=== PATIENT | male | born 1935 | race Caucasian/White ===

== ENCOUNTER 2022-08-24 22:04 | Emergency (ER) | payer MEDICARE ==
[~2022-08-24] VITALS: Ht 172.7 cm; Wt 100.0 kg
[~2022-08-24 22:04] MED LIST: ADVAIR DISK1 IN; ALLEGRA-D 1212 HOUR PO; ASPIRIN LOW81 M1 PO; AUGMENTIN500TAB PO; AVODART0.5 MG PO; BENAZEPRIL10 M1 PO; C 500 PO; C-PAP IN; CALCIUM/D250 MG PO; CELEXA10 MG OR; CHLORHEX GLU0.12 % MT; EFFIENT10 MG PO; FLOMAX0.4 M1 PO; FLOMAX0.4 MG OR; FLUARIX QUADRIV1 IN2 IM; HYDROCHLORO25 MG/TAB PO; HYDROCHLOROTH12.5 MG OR; LEXAPRO10 MG PO; LORTAB 7.5 PO; LORTAB 7.57.5 MG PO; MEDDOSEPAK PO; OMEPRAZOLE20 MG OR; PEPCID20 MG PO; PREVNAR 13 IM; ROBITUSSIN AC10 ML PO; SIMVASTATIN10 MG PO; SIMVASTATIN40 MG PO; SINGULAIR OR; SOMA350 MG PO; SPIRIVA IN; SYMBICORT1 AE1 IN; TOPROL XL50 MG PO; ZPAK PO
[2022-08-24 22:18] VITALS: BP 120/66
[2022-08-24 22:45] VITALS: BP 102/56
[2022-08-24 22:45] LABS: EOS% 7.8 % (0-8); HEMATOCRIT 45.4 % (39.0-50.0); HEMOGLOBIN 15.3 g/dl (14.0-18.0); IMMATURE GRANULOCYTES 0.1 % (0.0-5.0); LYMPH% 33.1 % (15-41); MEAN CELL VOLUME 93.4 fL CALC (80.0-100.0); MEAN CORPUSCULAR HGB 31.5 pG CALC (26.0-32.0); MEAN CORPUSCULAR HGB CONC 33.7 g/dL CAL (32.0-36.0); MONO% 9.8 % (2-13); NEUT# 4.29 thou/uL (1.82-7.42); NEUT% 48.2 % (42-76); RED BLOOD COUNT 4.86 mill/uL (4.70-6.10); RED CELL DISTRI WIDTH 12.8 % (11.5-15.5)
[2022-08-24 22:58] LABS: ALBUMIN 4.4 g/dL (3.2-5.0); ALKALINE PHOSPHATASE 53 u/l (38-126); AMYLASE 83 u/l (30-110); ANION GAP 9 (6-22 (CALC)); BUN 23 mg/dL (8-23); BUN/CREATININE RATIO 16 (12-20 (CALC)); CARBON DIOXIDE 31 mmol/l (22-30); CHLORIDE 101 mmol/l (95-108); CREATININE 1.4 mg/dL (0.7-1.3); GFR FOR AFR.AMER. 58 ML/MIN (>=60 (CALC)); GFR OTHER RACES 48 ML/MIN (>=60 (CALC)); LIPASE 192 u/l (23-300); POTASSIUM 3.8 mmol/l (3.5-5.1); SGOT/AST 35 u/l (19-48); SODIUM 137 mmol/l (137-146); TOTAL PROTEIN 7.4 g/dL (6.3-8.2)
[2022-08-24 22:59] LABS: BILIRUBIN, TOTAL 0.3 mg/dL (0.0-1.4)
[2022-08-24 23:00] VITALS: BP 116/66
[2022-08-24 23:15] VITALS: BP 110/54
[2022-08-24 23:30] VITALS: BP 108/57
[2022-08-24 23:45] VITALS: BP 105/57
[2022-08-25] VITALS (12 sets, daily range): BP systolic 100–119; BP diastolic 52–65
[2022-08-25 00:37] LABS: URINE BILIRUBIN - DIPSTICK NEGATIVE (NEGATIVE); URINE BLOOD DIPSTICK NEGATIVE (NEGATIVE); URINE COLOR YELLOW; URINE GLUCOSE - DIPSTICK NEGATIVE (NEGATIVE); URINE KETONE NEGATIVE (NEGATIVE); URINE LEUK ESTERASE NEGATIVE (NEGATIVE); URINE PROTEIN - DIPSTICK NEGATIVE (NEG-TRACE); URINE SPECIFIC GRAVITY >=1.030; URINE UROBILINOGEN - DIPSTICK 0.2 E.U./dL (0.2)
[2022-08-25 00:44] LABS: URINE NITRITE - DIPSTICK NEGATIVE (Negative)
[2022-08-25] MEDS ORDERED: ONDANSETRON4 MG PO (02:40)
== END 2022-08-25 03:28 | disposition home or self-care (01) ==
LOC: ED 22:04
PROVIDERS: Emergency Medicine
DX: R42 Dizziness and giddiness (principal); I10 Essential (primary) hypertension; I25.10 Atherosclerotic heart disease of native coronary artery without angina pectoris; I25.2 Old myocardial infarction; F17.200 Nicotine dependence, unspecified, uncomplicated

== ENCOUNTER 2024-06-26 16:26 | Emergency (ER) | payer MEDICARE ==
[~2024-06-26] VITALS: Ht 172.7 cm; Wt 95.2 kg
[2024-06-26] VITALS (11 sets, daily range): BP systolic 152–193; BP diastolic 86–143
[~2024-06-26 16:26] MED LIST changes: +ONDANSETRON4 MG PO
[2024-06-26] MEDS ORDERED: VANCOMYCIN HCL 1 GM in SODIUM CHLORIDE 0.9% 250 ML IV ONE (16:40)
[2024-06-26] MEDS ORDERED: CEFEPIME HYDROCHLORIDE 1 GM in SODIUM CHLORIDE 0.9% 50 ML IV ONE (16:40)
[2024-06-26] MEDS ORDERED: ISOVUE-300 (Iopamidol) 100 ML SDV IV ONE (16:40)
[2024-06-26 16:58] LABS: BASO% 0.5 % (0-3); EOS% 2.5 % (0-8); HEMATOCRIT 48.8 % (39.0-50.0); HEMOGLOBIN 16.5 g/dl (14.0-18.0); IMMATURE GRANULOCYTES 0.4 % (0.0-5.0); LYMPH% 21.5 % (15-41); MEAN CELL VOLUME 92.4 fL CALC (80.0-100.0); MEAN CORPUSCULAR HGB 31.3 pG CALC (26.0-32.0); MEAN CORPUSCULAR HGB CONC 33.8 g/dL CAL (32.0-36.0); MONO% 8.2 % (2-13); NEUT# 8.52 thou/uL (1.82-7.42); NEUT% 66.9 % (42-76); RED BLOOD COUNT 5.28 mill/uL (4.70-6.10); RED CELL DISTRI WIDTH 13.1 % (11.5-15.5)
[2024-06-26] MEDS ORDERED: ONDANSETRON HCl 4 MG/2 ML SDV IV ONE (17:00)
[2024-06-26] MEDS ORDERED: MORPHINE SULFATE 4 MG/ML VIAL IV ONE (17:00)
[2024-06-26] MEDS ORDERED: COZAAR25 MG PO (17:12)
[2024-06-26 17:17] LABS: ALBUMIN 4.5 g/dL (3.2-5.0); ALKALINE PHOSPHATASE 51 u/l (38-126); ANION GAP 16 (6-22 (CALC)); BILIRUBIN, TOTAL 0.5 mg/dL (0.2-1.3); BUN 20 mg/dL (8-23); BUN/CREATININE RATIO 17 (12-20 (CALC)); C-REACTIVE PROTEIN < 0.5 mg/dL (0-0.9); CARBON DIOXIDE 26 mmol/l (22-30); CHLORIDE 103 mmol/l (95-108); CREATININE 1.2 mg/dL (0.7-1.3); ESTIMATED GFR 59 ML/MIN (>=90 (CALC)); POTASSIUM 4.6 mmol/l (3.5-5.1); SGOT/AST 34 u/l (19-48); SODIUM 140 mmol/l (137-146); TOTAL PROTEIN 7.4 g/dL (6.3-8.2)
[2024-06-26] MEDS ORDERED: Diph, Acellular Pertussis, Tet 0.5 ML/VIAL (Tdap) SDV IM ONE (17:20)
== END 2024-06-26 19:23 | disposition short-term general hospital (02) ==
LOC: ED 16:26
PROVIDERS: Nurse Practitioner
DX: L02.01 Cutaneous abscess of face (principal); S01.431A Puncture wound without foreign body of right cheek and temporomandibular area, initial encounter; I10 Essential (primary) hypertension; W26.8XXA Contact with other sharp object(s), not elsewhere classified, initial encounter; Z72.0 Tobacco use
CPT/HCPCS: J0692; Q9967